=== PATIENT | female | born 1980 | race Caucasian/White ===

== ENCOUNTER 2018-04-12 23:37 | Emergency (ER) | payer BC ==
[2018-04-12 23:44] VITALS: BP 142/85; PULSE 97; RESP 20; TEMP 98.5
[2018-04-13] MEDS ORDERED: LIDOCAINE 1% INJ 10MG/ML (20 ML MDV) SQ ONE (01:04)
--- NOTE | 2018-04-13 01:14 | XR ---
EXAMINATION TYPE: XR hand complete LT DATE OF EXAM: 04/13/2018 COMPARISON: NONE HISTORY: Laceration TECHNIQUE: 3 views FINDINGS: I see no fracture nor dislocation. There is laceration deformity on the medial aspect of th e fifth MP joint. Joint spaces are normal. IMPRESSION: Laceration deformity. No fracture seen. No sign of a foreign body.
--- NOTE | 2018-04-13 01:19 | ED ---
General Adult HPI - General Chief complaint: Wound/Laceration Stated complaint: lac on hand Time Seen by Provider: 04/13/18 00:31 Source: patient, family, RN notes reviewed Mode of arrival: ambulatory Limitations: no limitations - History of Present Illness Initial comments: 37-year-old female presents to the emergency department for a chief complaint of hand laceration to the left dorsal hand. Patient was cleaning her gun accidentally cut herself. Patient refuses tetanus. Patient denies pain elsewhere in the hand. Patient did not sustain any other injuries.Patient has no other complaints at this time including shortness of breath, chest pain, abdominal pain, nausea or vomiting, headache, or visual changes. - Related Data Home Medications Medication Instructions Recorded Confirmed No Known Home Medications 03/22/14 04/12/18 Allergies Allergy/AdvReac Type Severity Reaction Status Date / Time Gadolinium-Containing Allergy Anaphylaxis Verified 04/12/18 23:44 Contrast Medi Review of Systems ROS Statement: Those systems with pertinent positive or pertinent negative responses have been documented in the HPI. ROS Other: All systems not noted in ROS Statement are negative. Past Medical History Additional Past Medical History / Comment(s): Charai malformation, congenital cerebellar anatomical abnormality History of Any Multi-Drug Resistant Organisms: None Reported Past Surgical History: No Surgical Hx Reported Past Anesthesia/Blood Transfusion Reactions: No Reported Reaction Past Psychological History: No Psychological Hx Reported Smoking Status: Never smoker Past Alcohol Use History: None Reported Past Drug Use History: None Reported - Past Family History Father Family Medical History: No Reported History General Exam Limitations: no limitations General appearance: alert, in no apparent distress Head exam: Present: atraumatic, normocephalic, normal inspection Extremities exam: Present: full ROM (Full range of motion of the left hand including the fifth digit at the MCP PIP and DIP joints), normal capillary refill (Capillary refill less than 2 seconds and radial pulse 2+), other ( Patient does have a 1.5 cm laceration over the fifth MCP joint of the left hand. No foreign bodies evident. All deep structures intact.). Absent: tenderness (No tenderness in the left hand) Course Vital Signs 04/12/18 23:40 Temperature 98.5 F Pulse Rate 97 Respiratory 20 Rate Blood Pressure 142/85 O2 Sat by Pulse 98 Oximetry Procedures - Procedures Initial comment: Body area: left 5th MCP Laceration length: 1.5 cm Foreign bodies: no foreign bodies Tendon involvement: none Nerve involvement: none Vascular damage: no Anesthesia: local infiltration Local anesthetic: 2 mL 1% lidocaine Preparation: Patient was prepped and draped in the usual sterile fashion. Irrigation solution: saline Irrigation method:saline jet lavage Skin closure:4-0 Ethilon using sterile technique Number of sutures: 5 Technique: interupted Dressing: antibiotic ointment/ gauze Patient tolerance: Patient tolerated the procedure well with no immediate complications. Medical Decision Making - Medical Decision Making 37-year-old female presents the emergency department for laceration of the fifth MCP joint of the left hand. Dorsal aspect. Patient refuses tenderness in the emergency department although I did educate her that it was important to get it. She still refuses. Patient is full range of motion of the fifth digit. 1.5 cm laceration over the fifth MCP joint on the dorsal aspect. Capillary refill intact in the fifth digit. X-ray negative for fractures or foreign bodies. Wound was stitched and patient was educated on returning in 7- 10 days to have them removed. She will follow up with primary care in 1-2 days. Disposition Clinical Impression: Laceration Disposition: HOME SELF-CARE Condition: Good Instructions: Laceration (ED), Care For Your Stitches (ED) Additional Instructions: Please watch for signs of infection such as spreading redness streaking redness or fever and return if these occur. Return in 7-10 days to have sutures removed. Follow up with primary care in 1-2 days. Is patient prescribed a controlled substance at d/c from ED?: No Referrals: Price Pruitt MD [Primary Care Provider] - 1-2 days Time of Disposition: 01:54
== END 2018-04-13 02:09 | disposition home or self-care (01) ==
LOC: EC 23:37
DX: S61.217A Laceration without foreign body of left little finger without damage to nail, initial encounter (principal); Q04.8 Other specified congenital malformations of brain; G93.5 Compression of brain; Z91.041 Radiographic dye allergy status; W45.8XXA Other foreign body or object entering through skin, initial encounter; Y93.89 Activity, other specified; Y92.009 Unspecified place in unspecified non-institutional (private) residence as the place of occurrence of the external cause
CPT/HCPCS: 73130; 99283; 12001; J2001

== ENCOUNTER 2018-04-24 11:23 | Emergency (ER) | payer BC ==
[2018-04-24 11:32] VITALS: BP 153/84; PULSE 82; RESP 18; TEMP 97.6
--- NOTE | 2018-04-24 11:53 | ED ---
Skin/Abscess/FB HPI - General Chief complaint: Skin/Abscess/Foreign Body Stated complaint: Finger Lac-Revisit Time Seen by Provider: 04/24/18 11:36 Source: patient, RN notes reviewed Mode of arrival: ambulatory Limitations: no limitations - History of Present Illness Initial comments: 37-year-old female presents emergency Department chief complaint of wound opening up. Patient states that she had sutures removed last night and the wound reopened. Patient states his been no bleeding no redness no drainage. She states that his over her fifth MCP region. Patient states that the initial injury was from a gun slide striking her hand. - Related Data Home Medications Medication Instructions Recorded Confirmed No Known Home Medications 03/22/14 04/24/18 Allergies Allergy/AdvReac Type Severity Reaction Status Date / Time Gadolinium-Containing Allergy Anaphylaxis Verified 04/24/18 11:37 Contrast Medi Review of Systems ROS Statement: Those systems with pertinent positive or pertinent negative responses have been documented in the HPI. ROS Other: All systems not noted in ROS Statement are negative. Past Medical History Additional Past Medical History / Comment(s): Charai malformation, congenital cerebellar anatomical abnormality History of Any Multi-Drug Resistant Organisms: None Reported Past Surgical History: No Surgical Hx Reported Past Anesthesia/Blood Transfusion Reactions: No Reported Reaction Past Psychological History: No Psychological Hx Reported Smoking Status: Never smoker Past Alcohol Use History: None Reported Past Drug Use History: None Reported - Past Family History Father Family Medical History: No Reported History General Exam Limitations: no limitations General appearance: alert, in no apparent distress Head exam: Present: atraumatic, normocephalic, normal inspection Respiratory exam: Present: normal lung sounds bilaterally. Absent: respiratory distress, wheezes, rales, rhonchi, stridor Cardiovascular Exam: Present: regular rate, normal rhythm, normal heart sounds. Absent: systolic murmur, diastolic murmur, rubs, gallop, clicks Extremities exam: Present: other (Left hand fifth digit region there is 2 cm open laceration with no erythema patient's full range of motion) Skin exam: Present: warm, dry Course Vital Signs 04/24/18 11:30 Temperature 97.6 F Pulse Rate 82 Respiratory 18 Rate Blood Pressure 153/84 O2 Sat by Pulse 100 Oximetry Medical Decision Making - Medical Decision Making 37-year-old female presented for recheck of her wound. Patient has a wound dehiscence. Patient finger will be Steri-Stripped return parameters were discussed. Disposition Clinical Impression: Wound dehiscence Disposition: HOME SELF-CARE Condition: Stable Instructions: Wound Dehiscence (ED) Additional Instructions: Please return to the Emergency Department if symptoms worsen or any other concerns. Is patient prescribed a controlled substance at d/c from ED?: No Referrals: Price Pruitt MD [Primary Care Provider] - 1-2 days Time of Disposition: 11:53
== END 2018-04-24 12:10 | disposition home or self-care (01) ==
LOC: EC 11:23
DX: T81.33XD Disruption of traumatic injury wound repair, subsequent encounter (principal); Z91.048 Other nonmedicinal substance allergy status; W22.8XXD Striking against or struck by other objects, subsequent encounter
CPT/HCPCS: 99282

== ENCOUNTER 2023-02-03 20:17 | Emergency (ER) | payer BC, OTHER ==
[2023-02-03 20:23] VITALS: BP 133/77; PULSE 83; RESP 16; TEMP 98.5
--- NOTE | 2023-02-03 20:39 | ED ---
General Adult HPI - General Chief complaint: Extremity Problem,Nontraumatic Stated complaint: Pain in right foot Time Seen by Provider: 02/03/23 20:24 Source: patient Mode of arrival: ambulatory Limitations: no limitations - History of Present Illness Initial comments: Patient is a 42-year-old female presenting with chief complaint of right foot pa in. Patient denies any known injury, states that she did just have a trip that required a large amount of walking daily. Pain is isolated to the foot, weightbearing provokes pain. No swelling or bruising. No discoloration. No numbness or tingling. No weakness or loss of range of motion. - Related Data Home Medications Medication Instructions Recorded Confirmed No Known Home Medications 03/22/14 04/24/18 Allergies Allergy/AdvReac Type Severity Reaction Status Date / Time Gadolinium-Containing Allergy Anaphylaxis Verified 04/24/18 11:37 Contrast Medi Review of Systems ROS Statement: Those systems with pertinent positive or pertinent negative responses have been documented in the HPI. ROS Other: All systems not noted in ROS Statement are negative. Past Medical History Additional Past Medical History / Comment(s): Charai malformation, congenital cerebellar anatomical abnormality History of Any Multi-Drug Resistant Organisms: None Reported Past Surgical History: Hysterectomy Past Anesthesia/Blood Transfusion Reactions: No Reported Reaction Past Psychological History: No Psychological Hx Reported Past Alcohol Use History: None Reported Past Drug Use History: None Reported - Past Family History Father Family Medical History: No Reported History General Exam Limitations: no limitations General appearance: alert, in no apparent distress Head exam: Present: atraumatic, normocephalic, normal inspection Eye exam: Present: normal appearance, EOMI. Absent: scleral icterus, periorbital swelling Neck exam: Present: normal inspection, full ROM Right Foot/Toe exam: Present: normal inspection, full ROM, tenderness. Absent: swelling, ecchymosis, deformity, erythema Neurovascular tendon exam: Present: no vascular compromise Neurological exam: Present: alert, oriented X3, CN II-XII intact Psychiatric exam: Present: normal affect, normal mood Skin exam: Present: warm, dry, intact, normal color. Absent: rash Course Vital Signs 02/03/23 20:20 Temperature 98.5 F Pulse Rate 83 Respiratory 16 Rate Blood Pressure 133/77 O2 Sat by Pulse 98 Oximetry Medical Decision Making - Medical Decision Making Was pt. sent in by a medical professional or institution (ZAIDA Aguirre, UTILITY TRACTOR OPERATOR, urgent care, hospital, or skilled nursing...) When possible be specific @ -No Did you speak to anyone other than the patient for history (EMS, parent, family, police, friend...)? What history was obtained from this source @ -No Did you review nursing and triage notes (agree or disagree)? Why? @ -I reviewed and agree with nursing and triage notes Were old charts reviewed (outside hosp., previous admission, EMS record, old EKG, old radiological studies, urgent care reports/EKG's, skilled nursing records)? Report findings @ -No old charts were reviewed Differential Diagnosis (chest pain, altered mental status, abdominal pain women, abdominal pain men, vaginal bleeding, weakness, fever, dyspnea, syncope, headache, dizziness, GI bleed, back pain, seizure, CVA, palpatations, mental health, musculoskeletal)? @ -Differential Musculoskeletal Muscular strain, contusion, ligament sprain, fracture, arthritis, septic arthritis, bursitis, cellulitis, muscle spasm, nerve compression, DVT, arterial occlusion, herpes zoster, electrolyte abnormality, tumor.... This is not meant to be in all inclusive list EKG interpreted by me (3pts min.). @ -As above X-rays interpreted by me (1pt min.). @ -X-ray shows no fracture or dislocation CT interpreted by me (1pt min.). @ -None done U/S interpreted by me (1pt. min.). @ -None done What testing was considered but not performed or refused? (CT, X-rays, U/S, labs)? Why? @ -None What meds were considered but not given or refused? Why? @ -None Did you discuss the management of the patient with other professionals (professionals i.e. ZAIDA Aguirre, UTILITY TRACTOR OPERATOR, lab, RT, psych nurse, social science instructor, wallpaper installer, teacher, mounted police officer, comp field case manager)? Give summary @ -No Was smoking cessation discussed for >3mins.? @ -No Was critical care preformed (if so, how long)? @ -No Were there social determinants of health that impacted care today? How? (Homelessness, low income, unemployed, alcoholism, drug addiction, transportation, low edu. Level, literacy, decrease access to med. care, detention, rehab)? @ -No Was there de-escalation of care discussed even if they declined (Discuss DNR or withdrawal of care, Hospice)? DNR status @ -No What co-morbidities impacted this encounter? (DM, HTN, Smoking, COPD, CAD, Cancer, CVA, ARF, Chemo, Hep., AIDS, mental health diagnosis, sleep apnea, morbid obesity)? @ -None Was patient admitted / discharged? Hospital course, mention meds given and route, prescriptions, significant lab abnormalities, going to OR and other pertinent info. @ Patient is a 6-year-old female presenting with chief complaint of right foot pain. No distinct injury or trauma. He did have a recent trip with a lot of walking. No swelling to the foot or leg. Physical examination is unremarkable. X-ray shows no fracture or dislocation. Educated on supportive management at home. Motrin and Tylenol as needed. Rest, ice, elevate. Follow-up with PCP. Report back to ER with any new or worsening symptoms. Discussed return parameters and answered all questions. Patient conveyed verbal understanding and agreed to the plan. I discussed this case in detail with my attending Dr. Berman Undiagnosed new problem with uncertain prognosis? @ -No Drug Therapy requiring intensive monitoring for toxicity (Heparin, Nitro, Insulin, Cardizem)? @ -No Were any procedures done? @ -No Diagnosis/symptom? @ -Foot strain Acute, or Chronic, or Acute on Chronic? @ -Acute Uncomplicated (without systemic symptoms) or Complicated (systemic symptoms)? @ -Uncomplicated Side effects of treatment? @ -No Exacerbation, Progression, or Severe Exacerbation? @ -No Poses a threat to life or bodily function? How? (Chest pain, [place], [place], pneumonia, PE, COPD, DKA, ARF, appy, cholecystitis, CVA, Diverticulitis, Homicidal, Suicidal, threat to staff... and all critical care pts) @ -No Disposition Clinical Impression: Right foot strain Disposition: HOME SELF-CARE Condition: Good Instructions (If sedation given, give patient instructions): Foot Sprain (ED) Additional Instructions: Follow-up with PCP. Report back to ER with any new or worsening symptoms. Rest, ice, compress, elevate the foot. Motrin and Tylenol as needed. Is patient prescribed a controlled substance at d/c from ED?: No Referrals: Price Pruitt MD [Primary Care Provider] - 1-2 days Time of Disposition: 21:07
--- NOTE | 2023-02-03 20:48 | XR ---
EXAMINATION TYPE: XR foot complete RT DATE OF EXAM: 02/03/2023 CLINICAL HISTORY: pain TECHNIQUE: Frontal, lateral and oblique images of the right foot are obtained. COMPARISON: None. FINDINGS: There is no acute fracture/dislocation evident. There appears to be chronic deformity invo lving the neck/head of the proximal phalanx right fifth digit. The joint spaces appear within normal limits. The overlying soft tissue appears unremarkable. IMPRESSION: There is no acute fracture or dislocation. ICD 10 NO FRACTURE, INITIAL EVALUATION
== END 2023-02-03 21:20 | disposition home or self-care (01) ==
LOC: EC 20:17
DX: S96.911A Strain of unspecified muscle and tendon at ankle and foot level, right foot, initial encounter (principal); Z88.8 Allergy status to other drugs, medicaments and biological substances; X58.XXXA Exposure to other specified factors, initial encounter
CPT/HCPCS: 99283

== ENCOUNTER → 2023-12-04 | Outpatient (CLI) | payer OTHER ==
--- NOTE | 2023-12-04 22:11 | MR ---
EXAMINATION TYPE: MR brain wo con DATE OF EXAM: 12/04/2023 COMPARISON: NONE HISTORY: Chiari malformation type 1, Headaches TECHNIQUE: Multiplanar, multisequence imaging of the brain and brainstem is performed without IV cont rast. FINDINGS: Diffusion weighted images demonstrate no evidence of a recent infarct or other diffusion abnormality. The ventricular system and cisternal spaces are normal in size and appearance. The brain volume is a ge appropriate. There a few T2 hyperintense foci. For reference is a 6 mm round T2 hyperintense focus in the left frontal lobe above the ventricles axial image 25. Approximately 5 scattered lesions are seen. Midline structures demonstrate normal morphology. Cerebellar tonsils extend to level of the foramen m agnum without greater than 5 mm inferior extension. Normal vascular flow voids are present. There is 6 mm mucous retention cyst or polyp in the posterior right maxillary sinus axial image 12 otherwise p aranasal sinuses are clear. Globes are intact bilaterally. IMPRESSION: No convincing evidence for Chiari type I malformation currently. Mild nonspecific white m atter changes are noted.
== END | disposition home or self-care (01) ==
LOC: RADMRIMAIN 20:45
PROVIDERS: ATTEND Pediatrics
DX: G93.89 Other specified disorders of brain (principal); G93.5 Compression of brain
CPT/HCPCS: 70551

== ENCOUNTER → 2024-01-06 | Outpatient (CLI) | payer OTHER ==
--- NOTE | 2024-01-06 23:44 | MM ---
Reason for Exam: Screening (asymptomatic). Baseline mammogram. Patient History: Menarche at age 12. First Full-Term at age 30. Hysterectomy at age 41. Hormonal Contraceptives, ending at age 12. Risk Values: Carina 5 year model risk: 0.7%. NCI Lifetime model risk: 12.0%. Prior Study Comparison: Patient's first Mammogram. Tissue Density: The breasts are extremely dense, which lowers the sensitivity of mammography. Findings: Analyzed By CAD. The pattern is symmetrical. No suspicious groups of microcalcifications, spiculated or lobular masses, architectural distortion or other secondary signs of malignancy are mammographically apparent. Overall Assessment: Negative, BI-RAD 1 Management: Screening Mammogram of both breasts in 1 year. A negative mammogram report should not preclude additional follow up of suspicious palpable abnormalities. Patient should continue monthly self breast exam. A clinical breast exam by your physician is recommended on an annual basis and results should be correlated with mammographic findings. Electronically signed and approved by: Wood Dorsey D.O. Radiologis
== END | disposition home or self-care (01) ==
LOC: RADMAMWWP 10:12
PROVIDERS: ATTEND Pediatrics
DX: Z12.31 Encounter for screening mammogram for malignant neoplasm of breast (principal)
CPT/HCPCS: 77063; 77067